=== PATIENT | female | born 1935 | race Caucasian/White ===

== ENCOUNTER → 2017-03-06 | Outpatient (CLI) | payer OTHER | LOC: FIMAGING 10:13 | PROVIDERS: ATTEND Physician Assistant Surgical | DX: Z47.89 Encounter for other orthopedic aftercare (principal); Z98.1 Arthrodesis status ==

== ENCOUNTER → 2018-03-04 | Outpatient (CLI) | payer OTHER | LOC: FIMAGING 15:26 → EDSTATUS 15:34 | PROVIDERS: ATTEND Physician Assistant Surgical | DX: Z98.1 Arthrodesis status (principal); M50.322 Other cervical disc degeneration at C5-C6 level; M53.82 Other specified dorsopathies, cervical region ==

== ENCOUNTER → 2018-04-17 | Outpatient (CLI) | payer OTHER ==
[~2018-04-17] MED LIST: IOPAMIDOL (ISOVUE-300) 100 ML BTL ONE
== END ==
LOC: FIMAGING 09:34
PROVIDERS: ATTEND Physician Assistant
DX: R64 Cachexia (principal); J43.9 Emphysema, unspecified; R91.1 Solitary pulmonary nodule; E04.1 Nontoxic single thyroid nodule; K57.90 Diverticulosis of intestine, part unspecified, without perforation or abscess without bleeding
CPT/HCPCS: 71260; 74177; Q9967; 82565-PO

== ENCOUNTER 2018-05-01 21:14 | Emergency (ER) | payer OTHER ==
--- NOTE | 2018-05-01 21:34 | EDPHY ---
H & P Stated Complaint: Fell and hit head no LOC Time Seen by Provider: 05/01/18 21:26 HPI/ROS: CHIEF COMPLAINT: Fall HISTORY OF PRESENT ILLNESS: The patient is an 82-year-old female who fell trying to answer the phone. She hit her head. She has a hematoma to right forehead as well as some contusions to nasal bridge. No vision changes. No hearing changes. No loss of consciousness. No headache. No nausea. No other injuries. She states that she feels fine. No neck pain. REVIEW OF SYSTEMS: Constitutional: denies: chills, fever, recent illness, recent injury EENTM: denies: blurred vision, double vision, nose congestion Respiratory: denies: cough, shortness of breath Cardiac: denies: chest pain, irregular heart rate, lightheadedness, palpitations Gastrointestinal/Abdominal: denies: abdominal pain, diarrhea, nausea, vomiting, blood streaked stools Genitourinary: denies: dysuria, frequency, hematuria, pain Musculoskeletal: denies: joint pain, muscle pain Skin: denies: lesions, rash, jaundice, bruising Neurological: denies: headache, numbness, paresthesia, tingling, dizziness, weakness Hematologic/Lymphatic: denies: blood clots, easy bleeding, easy bruising Immunologic/allergic: denies: HIV/AIDS, transplant EXAM: GENERAL: Well-appearing, well-nourished and in no acute distress. HEAD: Right forehead hematoma, no laceration EYES: Pupils equal round and reactive to light, extraocular movements intact, sclera anicteric, conjunctiva are normal. ENT: Mild hematoma to the nasal bridge. No epistaxis. TMs normal, nares patent, oropharynx clear without exudates. Moist mucous membranes. NECK: No tenderness, no step-offs, Normal range of motion, supple without lymphadenopathy or JVD. LUNGS: Breath sounds clear to auscultation bilaterally and equal. No wheezes rales or rhonchi. HEART: Regular rate and rhythm without murmurs, rubs or gallops. ABDOMEN: Soft, nontender, normoactive bowel sounds. No guarding, no rebound. No masses appreciated. BACK: No CVA tenderness, no spinal tenderness, step-offs or deformities EXTREMITIES: Normal range of motion, no pitting or edema. No clubbing or cyanosis. NEUROLOGICAL: Cranial nerves II through XII grossly intact. Normal speech, normal gait. 5/5 strength, normal movement in all extremities, normal sensation PSYCH: Normal mood, normal affect. SKIN: Warm, dry, normal turgor, no visible rashes or lesions. 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, neck surgery - Family History Significant Family History: No pertinent family hx - Social History Smoking Status: Former smoker Alcohol Use: Sober Drug Use: None Constitutional: Initial Vital Signs Temperature (C) 36.4 C 05/01/18 21:18 Heart Rate 78 05/01/18 21:18 Respiratory Rate 16 05/01/18 21:18 Blood Pressure 168/111 H 05/01/18 21:18 O2 Sat (%) 90 L 05/01/18 21:18 O2 Delivery Mode Room Air Allergies/Adverse Reactions: No Known Allergies Allergy (Verified 05/01/18 21:22) Home Medications: Medication Instructions Recorded Ascorbic Acid [Vitamin C 500 mg 500 mg PO DAILY 02/03/16 (*)] Calcium Carb W/Vit D [Calcium Carb 500 mg PO BID 02/03/16 W/Vit D 500/200 (*)] Multivitamins [Multivitamin (*)] 1 each PO DAILY 02/03/16 Cholecalciferol (Vitamin D3) 5,000 unit TUBE Q28D 02/21/16 [Vitamin D3] Acetaminophen [Tylenol 325mg (*)] 325 - 650 mg PO Q4 PRN #0 tab 02/25/16 Aspirin EC [Aspirin EC 81 mg (*)] 81 mg PO DAILY #0 tab 02/25/16 Polyethylene Glycol 3350 [Miralax 17 gm PO TID #0 pkt 02/25/16 17 gm (*)] Escitalopram Oxalate [Lexapro] 20 mg PO DAILY #30 tablet 03/20/16 Omeprazole/Sodium Bicarbonate 20 each TUBE DAILY #30 packet 03/20/16 [Zegerid 20 mg Packet] Polyethylene Glycol 3350 [Miralax 17 gm PO DAILY PRN #0 pkt 03/20/16 17 gm (*)] Rizatriptan Benzoate [Rizatriptan] 5 mg PO DAILY PRN #30 tablet 03/20/16 Medical Decision Making - Diagnostics Imaging: Discussed imaging studies w/ call or contact centre team leader Radiologist ED Course/Re-evaluation: Head CT ordered in this adult patient for trauma for the following indication: Age greater than 65 years old The patient is reassured. She has no pain and no symptoms currently. She and her family are eager to go home. We discussed indications for returning. Differential Diagnosis: Partial list of the Differential diagnosis considered include but were not limited to; hematoma, contusion, nasal bone fracture, intracranial injury and although unlikely based on the history and physical exam, I also considered cranial fracture, neck injury. I discussed these differential diagnoses and the plan with the patient as well as the usual and expected course. The patient understands that the diagnosis is provisional and that in medicine we are not always correct and that further workup is often warranted. Usual and customary warnings were given. All of the patient's questions were answered. The patient was instructed to return to the emergency department should the symptoms at all worsen or return, otherwise to followup with the physician as we discussed. Departure - Departure Disposition: Home, Routine, Self-Care Clinical Impression: Traumatic hematoma of forehead Qualifiers: Encounter type: initial encounter Qualified Code(s): S00.83XA - Contusion of other part of head, initial encounter Condition: Fair Instructions: Head Injury (ED) Referrals: Russ Nguyen MD [Primary Care Provider] - As per Instructions
[2018-05-01 22:34] VITALS: BP 175/79
== END 2018-05-01 22:34 | disposition home or self-care (01) ==
DX: S00.83XA Contusion of other part of head, initial encounter (principal); Z79.82 Long term (current) use of aspirin; Z87.891 Personal history of nicotine dependence; W01.198A Fall on same level from slipping, tripping and stumbling with subsequent striking against other object, initial encounter; Y99.8 Other external cause status; Y93.89 Activity, other specified